=== PATIENT | female | born 1950 | race Caucasian/White ===

== ENCOUNTER 2023-02-19 17:53 | Emergency (ER) | payer MEDICARE, MEDICAID, SELFPAY ==
[2023-02-19 18:04] VITALS: BMI 22.4
--- NOTE | 2023-02-19 18:09 | PC.NURSE ---
angelica (drafter assistant) - [phone]
[2023-02-19 18:46] VITALS: PULSE 78; O2SAT 96
--- NOTE | 2023-02-19 18:46 | PC.NURSE ---
pt's two son's bedside for support. provider speaking w/ family at this time as well. pt repositioned to comfort. vss at this time. pt seems to be in no apparent distress at this time. respirations even and unlabored. call guzman placed within reach.
--- NOTE | 2023-02-19 18:56 | ED.GENADULT ---
HPI - General Adult General Chief complaint: General Medical Stated complaint: AMS,HOSPICE, COMBATIVE Source: patient and family Mode of arrival: EMS Limitations: other History of Present Illness HPI narrative: Patient comes to the emergency room via ambulance from home. Patient was discharged today from [facility]. Patient was discharged with home hospice. According to the family, when patient arrived to her home, patient was sleeping, and very sudden within a few seconds, patient became very agitated, screaming. Patient has history of dementia and metastatic cancer from unknown source. The family called the hospice nurse, seems that the patient receive 30 mg of morphine and p.o. Ativan and patient immediately come down and went to sleep. The RN recommended to bring the patient to the hospital and keep her overnight until they can come up with a plan for tomorrow? VNA /home hospice nurse called our nurse, reported that the patient was [facility] for about 1 week. In the hospital, patient was getting IM Zyprexa, Dilaudid and p.o. Seroquel. At this time, patient is sleeping comfortably. Patient unable to give any history at all Related Data Allergies Allergy/AdvReac Type Severity Reaction Status Date / Time No Known Allergies Allergy Verified 02/19/23 18:03 Review of Systems Review of Systems: Yes Other [facility] Past Medical History Medical History (Updated 02/19/23 @ 19:35 by Sarah Child MD) Metastatic cancer Cirrhosis Social History Social History Unable to assess alcohol history related to: Unknown Use of substances other than those prescribed or required for medical reasons: Unknown Physical Exam ED Vital Signs: Vital Signs - 24 hr 02/19/23 18:46 Pulse Rate 78 Pulse Oximetry 96 Oxygen Delivery Method Room Air BMI result Body Mass Index 22.4 Const Other: Appearance: Sleeping comfortably Eyes: Pupils equal, round and reactive to light. ENT: Pharynx normal. Neck: Normal inspection. Neck supple. No lymph nodes noted. No crepitus CVS: Normal heart rate and rhythm. Pulses normal. Normal S1 and S2 Respiratory: No respiratory distress. Breath sounds normal. No Wheezing. No rales Abdomen: Soft and nontender. No rigidity. No distention. Skin: Skin warm and dry. Normal skin color. Normal skin turgor. Extremities: No lower extremity edema. No Lacerations. No Rash Neuro: Sleeping comfortably Psych: Sleeping comfortably Course Course Course Narrative: -patient will be spending the night here in the ED -case management consult pending/ hospice nurse involved -physician observation observation started at 19:30 Discharge Plan Discharge Clinical Impression: Comfort measures only status Patient Disposition: Still a Patient
[2023-02-19 21:16] VITALS: RESP 18; O2SAT 96
--- NOTE | 2023-02-19 22:10 | MHC.EDTECH ---
Pt repositioned on left side.
[2023-02-19 23:52] VITALS: O2SAT 97
[2023-02-20 05:25] VITALS: PULSE 92; RESP 12; O2SAT 98
--- NOTE | 2023-02-20 06:21 | PC.NURSE ---
Resumed care of pt at 0300. PT resting quietly with even unlabored respirations noted. Escudero in place- 30 cc of dark concentrated urine ouput noted. Sacral foam dressing dry and intact. PT repositioned for comfort by this RN and MANAGER CT. Call guzman within reach. Plan of care ongoing.
[2023-02-20 09:29] VITALS: BP 92/54; PULSE 100; RESP 20; TEMP 37.1; O2SAT 95
--- NOTE | 2023-02-20 09:56 | PC.NURSE ---
Patient resting comfortably in bed, respirations even and unlabored. Son and [facility] at bedside
--- NOTE | 2023-02-20 11:08 | PC.NURSE ---
Patient with family at bedside, moved to bed 1 for privacy
--- NOTE | 2023-02-20 13:08 | MHC.CM.PN ---
Addendum entered by Christi Kwon 02/20/23 13:34: A call was received from Hospice. The RN alliances consultant, Felecia will come to assess for GIP. Original Note: Patient discharged from [facility] to home with [facility]. The patient had uncontrolled symptoms of agitation. The patient was medicated in the ER. Per RN patient has been comfortable all shift. Communicating via [facility], (8am), a message was received from hospice stating that the patient should be GIP. A follow up message has been sent to hospice via [facility] (13:00). The VNA has been informed of the patients status (comfortable). A request to have the patient assessed or to please advise if patient should be made GIP.
[2023-02-20 14:00] VITALS: BP 64/43; PULSE 99; RESP 16; TEMP 36.2; O2SAT 92
--- NOTE | 2023-02-20 14:48 | PC.NURSE ---
Patient turned and repositioned on left side, patient clean and dry. Family requesting for her to be left in pj`s from home and they will bring new ones in tonight. Escudero inact with small amount of dark yellow output. Patient alert but not responding. Does not appear to be in any pain or discomfort. MOLST form requested from family/bottle caser
--- NOTE | 2023-02-20 15:04 | PC.NURSE ---
BP taken by tech, family questioning low BP and what would be done for it. Reviewed with family that this morning they stated that she has hospice/rfp writer and they did not want any additional medical interventions. Reviewed that patient is not eating or drinking and low output from guzman. Family stating they do not want IVS or anything to further extend patients life past its natural course. MOLST from obtained from son, DNR, DNI, no artifical hydration or nutrition. MOLST signed and dated 02/17/23 by . System Administrator placed in chart
--- NOTE | 2023-02-20 15:19 | PC.NURSE ---
Hospice requesting for patient to remain in overflow tonight, stating hospice will be in to asses in the morning for possible d/c home depending on patients condition in A.M. Provider aware.
--- NOTE | 2023-02-20 17:13 | PC.NURSE ---
Patient resting comfortably in bed with eyes closed, breathing even and unlabored. Family at bedside.
--- NOTE | 2023-02-20 18:26 | PC.NURSE ---
Family at bedside, breathing even and unlabored, no s/s of pain or discomfort
[2023-02-20 21:37] VITALS: RESP 15
--- NOTE | 2023-02-20 21:49 | MHC.EDTECH ---
PATIENT FAMILY MEMBER CONTINUE TO REFUSED FOR USE TO PROVIDE CARE OR REPOSITION ,SAID PT IS COMFORTABLE ,RN AWARE .
--- NOTE | 2023-02-20 22:10 | PC.NURSE ---
PT resting with eyes closed. Respirations even and unlabored. Family at bedside. Family refused repositioning and to change PT clothing. Comfort cart provided for family with nourishments.Call guzman within reach
--- NOTE | 2023-02-21 01:38 | PC.NURSE ---
PT appears to be sleeping with eyes closed. respirations even and unlabored. SOn at bedside. Provide son with recliner for comfort. Son continues to declines any repositioning or changing to pt noting that PT appears to be comfortable as she is. Comfort measures remain. Safety precautions in place. Plan of care ongoing.
--- NOTE | 2023-02-21 03:23 | PC.NURSE ---
PT appears to be sleeping with her eyes closed and even, unlabored respirations. Son at bedside. Son declining repositioning or pericare/clothing change at this time indicated that pt is fine . Call guzman within reach. Comfort measures remain
[2023-02-21 04:00] VITALS: RESP 22
[2023-02-21 06:00] VITALS: RESP 15
--- NOTE | 2023-02-21 10:43 | MHC.CM.PN ---
oceanography teacher Jocelynn states that the patient is ready to resume hospice at home. She requested a paper prescription for Lorazapam liquid. The provider wrote the script. A prn Lorazapam dose has been ordered for the trip home. The ER nurse is aware of the PRN order. Transportation has been booked as a will call. RN will call when patient ready for picker and packer. A family member has been notified of discharge plan. He confirms address on file. DP resume [facility] hosp[facility] at home. Transport via BLS.
== END 2023-02-21 11:26 | disposition home or self-care (01) ==
PROVIDERS: Emergency Provider Emergency Medicine
DX: R41.82 Altered mental status, unspecified (principal); F03.90 Unspecified dementia, unspecified severity, without behavioral disturbance, psychotic disturbance, mood disturbance, and anxiety; C80.1 Malignant (primary) neoplasm, unspecified; Z51.5 Encounter for palliative care
CPT/HCPCS: 99284